=== PATIENT | female | born 1990 | race African-American/Black ===

== ENCOUNTER 2016-05-23 10:42 | Emergency (ER) | payer OTHER, SELFPAY ==
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
== END 2016-05-23 12:18 | disposition home or self-care (01) ==
LOC: MADERS 10:42
DX: S02.40FA Zygomatic fracture, left side, initial encounter for closed fracture (principal); F32.9 Major depressive disorder, single episode, unspecified; F17.210 Nicotine dependence, cigarettes, uncomplicated; Y04.8XXA Assault by other bodily force, initial encounter
CPT/HCPCS: 70450; 70486

== ENCOUNTER 2021-10-24 02:37 | Emergency (ER) | payer OTHER, SELFPAY ==
[2021-10-24] MEDS ORDERED: Sodium Chloride 0.9% 1,000 ML ONE (02:59)
[2021-10-24] MEDS ORDERED: Fentanyl 100 MCG/2 ML VIAL ONE ×2 (02:59→03:56)
[2021-10-24 03:31] LABS: Band 11 % (5-11); Hemoglobin 11.4 g/dL (12.0-16.0); INR-International Normal Ratio 1.1; Lymphocytes 9 % (21-51); MDiff Complete? YES; Mean Corpuscular HGB CONC 33.5 g/dL (32.0-36.0); Mean Corpuscular Hemoglobin 28.9 pg (27.0-31.0); Mean Corpuscular Volume 86.3 fL (78.0-98.0); Mean Platelet Volume 9.5 fL (7.4-10.4); Monocytes 3 % (0-10); Neutrophil 77 % (42-75); Platelet Count 245 thou/uL (130-400); Prothrombin Time 14.2 sec (12.0-14.7); RBC Distribution Width 12.5 % (11.5-14.5); Red Blood Cell (RBC) Count 3.96 mill/uL (4.20-5.40); White Blood Cell (WBC) Count 28.6 thou/uL (4.8-10.8)
[2021-10-24 03:32] LABS: BHCG - Serum Negative (NEGATIVE); PTT 32.8 sec (22.9-36.1); Pregs Control Background? CLEAR/WHITE (CLR/WHITE); Pregs Control Bar Appear? YES (CONTROL BAR)
[2021-10-24 03:39] LABS: ALT (SGPT) 40 U/L (8-55); AST (SGOT) 63 U/L (5-34); Alkaline Phosphatase 48 U/L (40-110); Anion Gap 12 mmol/L (10-20); BUN (Urea Nitrogen) 21 mg/dL (7.0-18.7); Bilirubin, Total 0.9 mg/dL (0.2-1.2); CK (CPK) 695 U/L (29-168); Calc. Creatinine Clearance 0 mL/min (70-130); Calcium 8.4 mg/dL (7.8-10.44); Carbon Dioxide 24 mmol/L (22-29); Chloride 108 mmol/L (98-107); Estimated GFR 82; Globulin 2.9 g/dL (2.4-3.5); Glucose 172 mg/dL (70-105); Protein, Total 6.9 g/dL (6.0-8.3); Sodium 141 mmol/L (136-145)
[2021-10-24] MEDS ORDERED: Lorazepam 2 MG/ML VIAL ONE (03:56)
[2021-10-24 04:03] LABS: Magnesium 2.1 mg/dL (1.6-2.6)
[2021-10-24] MEDS ORDERED: CEFAZOLIN 2 GM VIAL ONE (04:54)
[2021-10-24] MEDS ORDERED: Boostrix 0.5 ML (Tdap) VIAL ONE (05:15)
[2021-10-24] MEDS ORDERED: Lidocaine 1%/Epinephrine 1:100K 10 ML VIAL ONE (05:15)
[2021-10-24] MEDS ORDERED: Potassium Chloride 20 MEQ TAB ONE (06:07)
[2021-10-24 08:09] LABS: SARS-CoV-2 NAA Rapid Test Not Detected (NotDetected)
[2021-10-24] MEDS ORDERED: Sodium Chloride 0.9% 1,000 ML BAG ONE (09:27)
[2021-10-24] MEDS ORDERED: Iopamidol 370 76% 100 ML VIAL ONE (10:01)
== END 2021-10-24 08:27 | disposition short-term general hospital (02) ==
LOC: MADERS 02:37
DX: S62.613B Displaced fracture of proximal phalanx of left middle finger, initial encounter for open fracture (principal); S62.615B Displaced fracture of proximal phalanx of left ring finger, initial encounter for open fracture; S52.222B Displaced transverse fracture of shaft of left ulna, initial encounter for open fracture type I or II; S92.021A Displaced fracture of anterior process of right calcaneus, initial encounter for closed fracture; S62.311A Displaced fracture of base of second metacarpal bone, left hand, initial encounter for closed fracture; S62.323A Displaced fracture of shaft of third metacarpal bone, left hand, initial encounter for closed fracture; S01.01XA Laceration without foreign body of scalp, initial encounter; S71.102A Unspecified open wound, left thigh, initial encounter; F17.210 Nicotine dependence, cigarettes, uncomplicated; V03.00XA Pedestrian on foot injured in collision with car, pick-up truck or van in nontraffic accident, initial encounter; Y93.01 Activity, walking, marching and hiking; Y92.411 Interstate highway as the place of occurrence of the external cause; Z23 Encounter for immunization; Z20.822 Contact with and (suspected) exposure to COVID-19
CPT/HCPCS: 12032; 28470; 70450; 70486; 71260; 72125; 74177; 80053; 82550; 83605; 83735; 84703; 85025; 85610; 85730; 90471; 90715; 96361; 96365; 96366; 96375; 96376; J0690; J2060; J3010; J7050; Q9967; U0002